=== PATIENT | female | born 1950 | race Caucasian/White ===

== ENCOUNTER 2022-08-10 09:09 | Outpatient (CLI) | payer OTHER ==
[2022-08-10] MEDS ORDERED: Iopamidol 370 76% 100 ML VIAL ONE (10:15)
== END 2022-08-10 09:10 | disposition home or self-care (01) ==
LOC: CT 09:09
PROVIDERS: ATTEND Otolaryngology Plastic Surgery within the Head & Neck
DX: E83.52 Hypercalcemia (principal); E04.2 Nontoxic multinodular goiter
CPT/HCPCS: 70492; 78072; 82565; A9500; Q9967